=== PATIENT | male | born 1990 | race Caucasian/White ===

== ENCOUNTER 2020-09-02 08:36 | Emergency (ER) | payer MEDICAID, SELFPAY ==
[~2020-09-02] VITALS: Ht 182.9 cm; Wt 72.0 kg
--- NOTE | 2020-09-02 08:52 | NUR ---
PATIENT WALKED BACK FROM TRIAGE WITH CHIEF C/O LLQ PAIN OFF AND ON X2 YEARS. PER PATIENT PAIN GOT WORSE LAST NIGHT, AND HE IS HAVING DIFFICULTY TAKING DEEP BREATHS. DENIES PAIN WITH URINATION, DOES REPORT HAVING TO STRAIN WHEN HAVING A BM. BIANKA, CONNECTED TO MONITORS, CALL LIGHT WITHIN REACH.
[2020-09-02] MEDS ORDERED: ONDANSETRON 2MG/ML, 2ML ONE (09:16)
[2020-09-02] MEDS ORDERED: KETOROLAC 30 MG/1 ML ONE (09:16)
--- NOTE | 2020-09-02 09:24 | NUR ---
20 GAUGE IV STARTED LEFT AC, BLOOD COLLECTED AND GIVEN TO RECORDS TECHNICIAN. PATIENT MEDICATED PER eMAR. UNABLE TO URINATE AT THIS TIME.
[2020-09-02] MEDS ORDERED: ONDANSETRON 2MG/ML, 2ML IVPush ONE (09:30)
[2020-09-02] MEDS ORDERED: KETOROLAC 30 MG/1 ML IVPush ONE (09:30)
[2020-09-02] MEDS ORDERED: SODIUM CHLORIDE FLUSH 10ML SYR IVF ONE (09:30)
[2020-09-02 09:35] LABS: BASOPHILS % (AUTO) 1 % (0-1); EOSINOPHILS % (AUTO) 0 % (1-7); LYMPHOCYTES % (AUTO) 24 % (22-44); MEAN CORPUSCULAR HEMOGLOBIN 27.4 pg (27.5-34.5); MEAN CORPUSCULAR HGB CONC 33.4 g/dL (33.2-36.2); MEAN PLATELET VOLUME 8.2 fL (7.4-10.4); MONOCYTES % (AUTO) 8 % (2-9); NEUTROPHILS % (AUTO) 67 % (42-75); PLATELET COUNT 273 x10^3/uL (130-400); RED BLOOD COUNT 5.85 x10^6/uL (4.38-5.82); RED CELL DISTRIBUTION WIDTH 13.7 % (9.4-14.8)
[2020-09-02 09:40] LABS: ALBUMIN 4.6 g/dL (3.4-5.0); ANION GAP 5 mmol/L (5-15); CALCIUM 9.3 mg/dL (8.5-10.1); CHLORIDE 108 mmol/L (98-107); CREATININE 0.99 mg/dL (0.7-1.3); MD NO
--- NOTE | 2020-09-02 10:01 | NUR ---
PATIENT AMBULATED TO BATHROOM WITH STEADY GAIT FOR URINE SAMPLE.
--- NOTE | 2020-09-02 10:08 | NUR ---
URINE SAMPLE COLLECTED AND SENT TO LAB, PATIENT TO CT SCAN.
[2020-09-02 10:25] LABS: MICROSCOPIC AUTO
[2020-09-02 10:48] VITALS: BP 122/68
--- NOTE | 2020-09-02 11:00 | NUR ---
IV removed with tip intact. Patient given discharge instructions and they have confirmed that they understand the instructions, all questions answered. Patient stable and ambulatory with steady gait from ED with all personal belongings.
== END 2020-09-02 11:01 | disposition home or self-care (01) ==
LOC: ED 09:39
DX: G89.29 Other chronic pain (principal); R10.32 Left lower quadrant pain
CPT/HCPCS: 36415; 74176; 80048; 81001; 82040; 85025; 96374; 96375; 99284; J1885; J2405